=== PATIENT | female | born 1995 | race Caucasian/White ===

== ENCOUNTER → 2020-07-19 | Outpatient (CLI) | payer BC ==
--- NOTE | 2020-07-19 12:46 | XR ---
Nasal bone HISTORY: Presurgical, remote nasal fracture with acquired deformity 3 views of the nasal bones. Nasal bone deformity is present consistent with patient's history. No air-fluid level in the paranasa l sinuses. Orbits are intact. No acute fracture is evident. Bone mineralization is maintained. IMPRESSION: Findings consistent with patient's history.
== END | disposition home or self-care (01) ==
LOC: RADXRMAIN 12:12
PROVIDERS: ATTEND Otolaryngology
DX: Z01.818 Encounter for other preprocedural examination (principal)
CPT/HCPCS: 70160